=== PATIENT | female | born 1960 | race Caucasian/White ===

== ENCOUNTER → 2016-08-16 | Day surgery (SDC) | payer OTHER ==
[~2016-08-16] MED LIST: APREPITANT 40 MG CAP ONE; BUPIVACAINE HCL PF 0.5% 10 ML VIAL ONE; KETOROLAC TROMETHAMINE 30 MG/ML (IVP) VIAL ONE; LACTATED RINGER'S 1000 ML INJ 1,000 ML ONE; LORT5TAB PO; MIDAZOLAM HCL 2 MG/2 ML VIAL ONE; NABU500T PO; ONDANSETRON HCL 4 MG/2 ML VIAL IV PUSH ONE; PROPOFOL 200 MG/20 ML AMP IV ONE; Z.0.BCPILL PO; ceFAZolin INJ 1,000 MG VIAL ONE
--- NOTE | 2016-08-16 11:39 | TN ---
cc: CONSUELO PARK DATE OF SURGERY 08/16/2016 PRINCIPAL DIAGNOSIS Atypical ductal hyperplasia of the right breast. POSTOPERATIVE DIAGNOSIS Atypical ductal hyperplasia of the right breast. PROCEDURE PERFORMED Right breast needle-localized lumpectomy. SURGEON Consuelo Park MD ANESTHESIA General via LMA device INDICATION The patient is a 56-year-old female who had an area of microcalcifications in the central right breast. Stereotactic biopsy demonstrated atypical ductal hyperplasia and she now presents for re-excision of the area. FINDINGS AT THE TIME OF SURGERY Specimen mammogram did demonstrate an intact wire and the biopsy clip and residual calcifications were within the specimen. PROCEDURE PERFORMED After informed consent was obtained and site verification was performed, the patient was brought to the radiology suite where she underwent needle localization of her prior biopsy site. She was then brought to the major operating room where the lesion was identified at 12 o'clock 1 cm from the nipple. She received a single dose of IV Ancef and sequential compression hose were placed. She underwent general anesthesia via an LMA device and the right breast was prepped and draped in sterile fashion. A periareolar incision was anesthetized with 0.5% Marcaine plain and incised sharply. Sharp dissection was performed until the wire entry point through the skin was identified and secured with a hemostat. The wire was cut off at the skin with pin cutters and a 2-0 silk transfixion suture was placed at the wire entry point into the breast tissue. Sharp electrocautery dissection was then performed circumferentially around the wire. The specimen was oriented with two sutures anteriorly, one short suture superiorly, and one long suture laterally. The specimen was removed and sent for permanent pathologic evaluation as well as imaging. Hemostasis was easily obtained with electrocautery and the wound was closed using interrupted 3-0 Vicryl subcutaneous sutures and a 4-0 Monocryl subcuticular suture. Steri-Strips and a sterile dressing were applied. The patient tolerated the procedure well with minimal blood loss and she was extubated in the operating room and brought to the recovery room in good condition. All sponge and needle counts were correct at the conclusion of the case. MD UNIQUE Rodriguez/RAJNI /11:17 AM 11:28 AM
== END | disposition home or self-care (01) ==
LOC: ESDC 07:27
PROVIDERS: ATTEND Surgery
DX: N60.91 Unspecified benign mammary dysplasia of right breast (principal)
CPT/HCPCS: 00400; 19125; 88307; J0690; J1885; J2250; J2405; J3010; J7120; J8501